=== PATIENT | female | born 1970 | race Caucasian/White ===

== ENCOUNTER 2023-11-12 13:24 | Emergency (ER) | payer MEDICAID ==
[~2023-11-12] VITALS: Ht 172.7 cm; Wt 79.8 kg
[2023-11-12] MEDS ORDERED: MECLIZINE HCL 25 MG TABLET ONE (14:04)
[2023-11-12] MEDS: MECLIZINE HCL 25 MG TABLET PO ONE (14:23)
[2023-11-12] MEDS: IV NS 0.9% 1,000 ML BAG IV ONE (14:23)
[2023-11-12] MEDS ORDERED: METOCLOPRAMIDE HCL 10 MG/2 ML VIAL ONE ×2 (14:25→14:35)
[2023-11-12 14:27] LABS: BASOPHILS % (AUTO) 0.3 % (0.0-2.0); EOSINOPHILS % (AUTO) 0.5 % (0.0-6.0); HEMATOCRIT 43 % (33-45); HEMOGLOBIN 14.3 g/dL (11.5-14.8); LYMPHOCYTES % (AUTO) 15.3 % (20.0-44.0); MEAN CORPUSCULAR HEMOGLOBIN 27 PG (26.0-33.0); MEAN CORPUSCULAR HGB CONC 33 g/dl (31.0-36.0); MEAN CORPUSCULAR VOLUME 82 fL (82-100); MONOCYTES # (AUTO) 0.3 K/uL (0.1-1.30); MONOCYTES % (AUTO) 4.9 % (2.0-12.0); NEUTROPHILS # (AUTO) 5.4 K/uL (1.8-8.9); PLATELET COUNT (AUTO) 262 K/uL (150-450); RED BLOOD CELL COUNT(AUTO) 5.23 MIL/uL (4.0-5.2); RED CELL DISTRIBUTION WIDTH 13.6 % (11.5-15.0); WHITE BLOOD COUNT (AUTO) 6.8 K/uL (4.3-11.0)
[2023-11-12 14:38] LABS: CALCIUM, SERUM 10.9 mg/dL (8.5-10.1); CREATININE 0.7 mg/dL (0.6-1.3); POTASSIUM 3.5 mmol/L (3.5-5.1)
[2023-11-12] MEDS: METOCLOPRAMIDE HCL 10 MG/2 ML VIAL IV ONE (14:39)
[2023-11-12 14:44] LABS: BILIRUBIN,DIRECT 0.1 mg/dL (0.0-0.2); BILIRUBIN,TOTAL 0.4 mg/dL (0.2-1.0); TOTAL PROTEIN, SERUM 8.1 g/dL (6.4-8.2)
[2023-11-12 15:55] VITALS: TEMP 98.4
[2023-11-12 16:37] VITALS: BP 135/70; O2SAT 100
== END 2023-11-12 16:20 | disposition home or self-care (01) ==
LOC: ER 13:26
DX: I16.0 Hypertensive urgency (principal); R51.9 Headache, unspecified; R07.89 Other chest pain
CPT/HCPCS: 99284; 96360; 93005; 85025; 80048; 80076; 36415; 84484; 82962; J8597; J2765 ×2; J7030